=== PATIENT | male | born 1940 | race Caucasian/White ===

== ENCOUNTER 2017-02-08 14:25 | Emergency (ER) | payer OTHER, BC ==
[2017-02-08 15:11] VITALS: BP 156/70; PULSE 68; RESP 18; TEMP 97.7; O2SAT 96
--- NOTE | 2017-02-08 16:00 | UCPHY ---
H & P Patient Type: New HPI/ROS: CHIEF COMPLAINT: Cough, cold symptoms HISTORY OF PRESENT ILLNESS: Patient says he has had cough and cold-like symptoms for the past 10 days. They are gradual in onset. Constant duration. He has a productive cough with green sputum. No fever or chills. No chest pain or shortness of breath. Some sore throat or runny nose. No headache or dizziness. No syncope. No abdominal complaints. No urinary complaints. He is here because he has history of renal transplant remotely. He is on multiple immunosuppressive and his physicians are recommended at day 10 he seek antibiotic treatment. He has no other associated complaints or modifying factors. He has received routine care and his medications are up-to-date and his levels are up-to-date. REVIEW OF SYSTEMS: Ten systems reviewed and are negative unless otherwise noted in the HPI PERTINENT MEDICAL HISTORY: Renal transplant on immunosuppressant was EXAMINATION General Appearance: Alert, no distress Head: normocephalic, atraumatic Eyes: Pupils equal and round, no conjunctival pallor or injection. EOMs intact. ENT, Mouth: Mucous membranes moist. Uvula midline. No erythema or edema. Airway is widely patent. Neck: Normal inspection, supple, non-tender. No meningismus. Respiratory: Mild rhonchi on the right. No wheezing. No crackles. No diminishment. No consolidation. No retractions Cardiovascular: Regular rate and rhythm. No murmur. Pulses intact distally. Gastrointestinal: Abdomen is soft and nontender. No CVA tenderness. Neurological: A&O, nonfocal, normal gait Skin: Warm and dry, no rash Extremities: Nontender, no pedal edema Psychiatric: Mood and affect normal DIFFERENTIAL DIAGNOSES: Including but not limited to URI, lower respiratory infection, bronchitis, pneumonia, viral illness, immunosuppressed MDM: 3:55 p.m. Cough and congestion in a patient with a history of renal transplant. Symptoms have been present for 7-10 days. His vital signs are all within normal limits here. He has no chest pain. No shortness of breath. No hypoxia. No tachycardia or tachypnea. He is routinely placed on cefuroxime for prophylaxis given his history and his immunosuppressants, and the cefuroxime as recommended by his ring spinner. Feel this is well within reason at this point. I did not order x-ray as his lungs are clear and he has no abnormality of the vital signs. He is comfortable with discharge home with cefuroxime. He will watch his symptoms closely. He will call his primary care physician Friday. He will return to the Urgent Care ER should his symptoms worsen, he has any fever or any chest pain. SUPERVISION: This patient was independently evaluated without direct examination by the attending physician. Case was discussed with attending physician. Smoking Status: Former smoker Constitutional: Initial Vital Signs Temperature (C) 97.7 F 02/08/17 15:08 Heart Rate 68 02/08/17 15:08 Respiratory Rate 18 02/08/17 15:08 Blood Pressure 156/70 H 02/08/17 15:08 O2 Sat (%) 96 02/08/17 15:08 Allergies/Adverse Reactions: levofloxacin [From Levaquin] Allergy (Verified 02/08/17 15:05) meperidine HCl [From Demerol] Allergy (Verified 02/08/17 15:05) Home Medications: Medication Instructions Recorded Aspirin 325 mg (*) 02/08/17 Cefuroxime Axetil [Cefuroxime] 250 mg PO BID #20 tablet 02/08/17 Diltiazem 02/08/17 Gengraf 02/08/17 Kerydin 02/08/17 Losartan Potassium 02/08/17 Mycophenolate Mofetil 02/08/17 Nasonex 02/08/17 Prednisone 02/08/17 SIMVASTATIN 02/08/17 Tamsulosin HCl 02/08/17 ULORIC 02/08/17 MDM/Departure - Depart Disposition: Home, Routine, Self-Care Clinical Impression: Cough Upper respiratory infection Qualifiers: URI type: unspecified URI Qualified Code(s): J06.9 - Acute upper respiratory infection, unspecified Condition: Good Instructions: Upper Respiratory Infection (ED), Cold Symptoms (ED) Additional Instructions: Medications as discussed. Return to the ER or urgent care for any fever, worsening cough, any chest pain. Contact primary care physician Friday morning. Prescriptions: Cefuroxime Axetil [Cefuroxime] 250 mg PO BID #20 tablet Referrals: Unknown,Unknown [Primary Care Provider] - As per Instructions Roque Joy MD [Medical Doctor] - As per Instructions - PQRS PQRS Measurement: Not applicable
== END 2017-02-08 16:08 | disposition home or self-care (01) ==
LOC: CED 14:25
DX: J06.9 Acute upper respiratory infection, unspecified (principal)
CPT/HCPCS: 99203-PO; G0463-PO